=== PATIENT | male | born 1990 | race Two or more races ===

== ENCOUNTER 2018-03-14 13:53 | Emergency (ER) | payer MEDICAID ==
[~2018-03-14] VITALS: Ht 172.7 cm; Wt 77.1 kg
[2018-03-14] MEDS ORDERED: CEPHALEXIN500 M1 ORAL (14:04)
[2018-03-14] MEDS ORDERED: ACETAMINOPHEN-1 EAC1 ORAL (14:04)
[2018-03-14 14:10] VITALS: BP_SYST 113; BP_SYST 116; BP_DIAS 71; BP_DIAS 74
--- NOTE | 2018-03-14 17:51 | Emergency Room Report ---
History of Present Illness General Chief Complaint: Sore Throat Source: Patient Present Illness HPI A 27-year-old male presenting for a lump which she noticed on his neck. This has been present for the last 2 days. He also noticed a sore throat which occurred around the same time. He denies any known sick contacts or recent travel. He denies a cough at this time. He denies other symptoms including nausea, vomiting, fever, chills, rash, dysphagia, odynophagia, weight loss, night sweats Allergies: Coded Allergies: No Known Allergies (Unverified , 03/14/18) Patient History Past Medical History: see triage record Pertinent Family History: none Reviewed Nursing Documentation: PMH: Agreed; PSxH: Agreed Nursing Documentation-PMH Past Medical History: No Stated History Review of Systems All Other Systems: negative except mentioned in HPI Physical Exam Vital Signs Date Time Temp Pulse Resp B/P (MAP) Pulse Ox O2 Delivery O2 Flow Rate FiO2 03/14/18 13:58 98.7 77 17 113/74 98 Room Air 98.8 Sp02 EP Interpretation: reviewed, normal General Appearance: no apparent distress, alert, GCS 15, non-toxic Head: normocephalic, atraumatic Eyes: bilateral eye normal inspection, bilateral eye PERRL ENT: hearing grossly normal, normal pharynx, no angioedema, normal voice, TMs + canals normal, uvula midline Neck: full range of motion, supple/symm/no masses Respiratory: chest non-tender, lungs clear, normal breath sounds, speaking full sentences Musculoskeletal: back normal, gait/station normal, normal range of motion, non- tender Neurologic: alert, oriented x3, responsive, motor strength/tone normal, sensory intact, speech normal Psychiatric: judgement/insight normal, memory normal, mood/affect normal, no suicidal/homicidal ideation Skin: normal color, no rash, warm/dry, well hydrated Lymphatic: adenopathy - L submandibular isolated lymph node enlargement. Mulberry sized. Non tender. Mobile. Soft Medical Decision Making PA Attestation Dr. Abebe is my supervising physician. Patient management was discussed with my supervising physician Diagnostic Impression: Primary Impression: Lymphadenopathy, submandibular ER Course A 27-year-old male presenting for a lump which she noticed on his neck. Differential diagnosis considered but not limited to: Pharyngitis, otitis media , otitis externa, lymphoma, among others Physical exam: Afebrile. No apparent distress HEENT: No tonsillar edema or erythema. Tympanic membrane intact, no erythema or bulging. External auditory canals unremarkable. There is an isolated left submandibular lymph node which is enlarged. Approximately size of a marble. It is mobile, soft, and nontender. No overlying skin changes. Due to the patient's concurrent symptoms of sore throat, this is likely reactive. I did inform the patient of more serious causes including lymphoma. He was given warning signs and was told he needs to follow-up with his primary doctor as soon as possible for monitoring and further evaluation. ER precautions given Last Vital Signs Date Time Temp Pulse Resp B/P (MAP) Pulse Ox O2 Delivery O2 Flow Rate FiO2 03/14/18 13:58 98.7 77 17 113/74 98 Room Air 98.8 Status: improved Disposition: HOME, SELF-CARE Condition: Improved Patient Instructions: Lymphadenopathy Additional Instructions: I discussed my findings with the patient. All questions and concerns have been answered. Treatment and medication compliance have been addressed. I advised the patient that they need to follow up with PMD in 3-5 days. Return to ED if symptoms worsen, new symptoms arise, or if needed for any reason. Patient verbalized understanding of discharge instructions. CARLIN LIMON Mar 14, 2018 17:51
== END 2018-03-14 14:25 | disposition home or self-care (01) ==
LOC: EMR 14:09
DX: R59.0 Localized enlarged lymph nodes (principal)
CPT/HCPCS: 99282

== ENCOUNTER 2018-05-24 09:03 | Emergency (ER) | payer MEDICAID ==
[~2018-05-24] VITALS: Ht 172.7 cm; Wt 76.2 kg
[~2018-05-24 09:03] MED LIST: ACETAMINOPHEN-1 EAC1 ORAL; CEPHALEXIN500 M1 ORAL
--- NOTE | 2018-05-24 10:19 | Emergency Room Report ---
History of Present Illness General Chief Complaint: Earache Source: Patient Present Illness HPI This patient states that he has had a right sided earache for about the past week. He notes that at one point he had a lump in front of the ear but massage today and this resolved. He states he continues to have aching in that ear. He denies recent illness. He denies cough or congestion. He denies sore throat. He denies fever or chills. He denies change in hearing. He has no other complaints. Allergies: Coded Allergies: No Known Allergies (Unverified , 03/14/18) Patient History Past Medical History: none Social History: Denies: smoking, alcohol use, drug use Reviewed Nursing Documentation: PMH: Agreed; PSxH: Agreed Nursing Documentation-PMH Past Medical History: No Stated History Review of Systems All Other Systems: negative except mentioned in HPI Physical Exam Vital Signs Date Time Temp Pulse Resp B/P (MAP) Pulse Ox O2 Delivery O2 Flow Rate FiO2 05/24/18 09:06 98.4 50 18 104/65 98 Room Air Sp02 EP Interpretation: reviewed, normal General Appearance: no apparent distress, alert, GCS 15, non-toxic Head: normocephalic, atraumatic Eyes: bilateral eye normal inspection, bilateral eye PERRL ENT: normal ENT inspection, hearing grossly normal, normal pharynx, no angioedema, normal voice, TMs + canals normal Neck: full range of motion Respiratory: no respiratory distress, no retraction, no accessory muscle use, speaking full sentences Rectal: deferred Musculoskeletal: normal inspection, gait/station normal Neurologic: alert, oriented x3, responsive, motor strength/tone normal, sensory intact, speech normal Psychiatric: judgement/insight normal, memory normal, mood/affect normal, no suicidal/homicidal ideation Skin: normal color, no rash, warm/dry, well hydrated Medical Decision Making Diagnostic Impression: Primary Impression: Otalgia of right ear ER Course This patient has otalgia of his right ear. I suspect this is actually has right TMJ. Overall, the patient's evaluation was benign. Tympanic membrane was normal. There is no evidence of infection or foreign body of the right ear. The patient's dentition appears normal and I do not suspect odontogenic infection. Overall, the patient's evaluation is benign. I did not identify an emergency medical condition. The patient is given close return precautions and follow-up instructions. Please note that this Emergency Department Report was dictated using [employer] shop supervisor technology software, occasionally this can lead to erroneous entry secondary to interpretation by the dictation equipment. Last Vital Signs Date Time Temp Pulse Resp B/P (MAP) Pulse Ox O2 Delivery O2 Flow Rate FiO2 05/24/18 09:06 98.4 50 18 104/65 98 Room Air Status: improved Disposition: HOME, SELF-CARE Condition: Stable Scripts No Active Prescriptions or Reported Meds Referrals: NON PHYSICIAN (PCP) Laxmi Rudolph DO May 24, 2018 10:19
[2018-05-24 10:29] VITALS: BP_SYST 115; BP_DIAS 70; BP_DIAS 80
== END 2018-05-24 10:29 | disposition home or self-care (01) ==
LOC: EMR 09:45
DX: H92.01 Otalgia, right ear (principal)
CPT/HCPCS: 99282